=== PATIENT | male | born 1995 | race Two or more races ===

== ENCOUNTER 2021-01-07 06:50 | Emergency (ER) | payer MEDICAID ==
[~2021-01-07] VITALS: Ht 170.2 cm; Wt 88.5 kg
[2021-01-07 06:51] VITALS: BP 143/87
[2021-01-07] MEDS ORDERED: ALBUTEROL SULF 2.5 MG/0.5ML(0.5%) NEB SOLN NEB ONE (08:00)
[2021-01-07] MEDS ORDERED: IPRATROPIUM BROM 0.5 MG/2.5ML INH SOL NEB ONE (08:00)
== END 2021-01-07 08:46 | disposition home or self-care (01) ==
LOC: ER 06:50
DX: J45.901 Unspecified asthma with (acute) exacerbation (principal); Z76.0 Encounter for issue of repeat prescription
CPT/HCPCS: 94640; 99283; J7644

== ENCOUNTER 2021-01-13 11:52 | Emergency (ER) | payer MEDICAID ==
[~2021-01-13] VITALS: Ht 175.3 cm; Wt 88.5 kg
[2021-01-13 11:58] VITALS: BP 148/79
[2021-01-13] MEDS ORDERED: methylPREDNISolone SOD SUCC 125 MG/2 ML VL IM ONE (12:45)
[2021-01-13] MEDS ORDERED: IPRATROPIUM BROM 0.5 MG/2.5ML INH SOL NEB ONE (12:45)
[2021-01-13] MEDS ORDERED: ALBUTEROL SULF 2.5 MG/0.5ML(0.5%) NEB SOLN NEB ONE (12:45)
== END 2021-01-13 13:51 | disposition home or self-care (01) ==
LOC: ER 11:52
DX: J45.901 Unspecified asthma with (acute) exacerbation (principal)
CPT/HCPCS: 71046; 94640; 96372; 99283; J2930; J7644

== ENCOUNTER 2021-01-29 21:18 | Emergency (ER) | payer MEDICAID ==
[~2021-01-29] VITALS: Ht 172.7 cm; Wt 88.5 kg
[2021-01-30 01:29] VITALS: BP 137/74
[2021-01-30] MEDS ORDERED: KETOROLAC TROMETH 60MG/2ML VIAL IM ONE (03:15)
[2021-01-30] MEDS ORDERED: methylPREDNISolone SOD SUCC 125 MG/2 ML VL IM ONE (03:15)
== END 2021-01-30 04:28 | disposition home or self-care (01) ==
LOC: ER 21:18
DX: L25.0 Unspecified contact dermatitis due to cosmetics (principal); J45.909 Unspecified asthma, uncomplicated
CPT/HCPCS: 96372; 99284; J1885; J2930

== ENCOUNTER 2022-01-24 17:04 | Emergency (ER) | payer MEDICAID ==
[~2022-01-24] VITALS: Ht 175.3 cm; Wt 90.4 kg
[2022-01-24] MEDS: SODIUM CHLORIDE 0.9% 1,000 ML IVB ONE (17:45)
[2022-01-24] MEDS: ONDANSETRON HCL 4 MG/2 ML VIAL IV ONE (17:45)
[2022-01-24] MEDS: PANTOPRAZOLE 40 MG/10 ML VIAL INJ IV ONE (17:45)
[2022-01-24 18:05] LABS: Basophils # (auto) 0 10 ^3/uL (0-0.2); Basophils % (auto) 0.3 % (0.0-2.0); Eosinophils # (auto) 0 10 ^3/uL (0-0.8); Eosinophils % (auto) 0.3 % (0.0-7.0); Hematocrit 50.8 % (41.0-53.0); Hemoglobin 16.6 g/dL (13.5-17.5); Lymphocytes # (auto) 1.4 10 ^3/uL (0.4-5.4); Lymphocytes % (auto) 13.4 % (10.0-50.0); Mean Corpuscular Hgb Conc. 32.7 g/dL (32.0-36.0); Mean Corpuscular Volume 91.9 fL (80.0-100.0); Monocytes # (auto) 0.7 10 ^3/uL (0-1.3); Monocytes % (auto) 6.8 % (0.0-12.0); Neutrophils % (auto) 79.2 % (37.0-80.0); Nucleated Red Blood Cells % 0.2 %; Red Blood Cells 5.53 10^6/uL (4.5-5.90); Red Cell Distribution Width 12.7 % (11.8-14.3); White Blood Cell 10.1 10^3/uL (4.4-10.8)
[2022-01-24 18:16] LABS: Albumin 3.8 g/dL (3.4-5.0); Calcium 8.4 mg/dL (8.5-10.1); Potassium 3.9 mmol/L (3.5-5.1)
[2022-01-24 18:20] LABS: BUN/Creatinine Ratio 7.3; Bilirubin, Total 0.6 mg/dL (0.2-1.0); Total Protein 7.2 g/dL (6.4-8.2)
[2022-01-24 18:37] LABS: Urine Bacteria NONE SEEN /hpf (None Seen); Urine Blood Negative /uL (Negative); Urine Mucus FEW (None Seen); Urine Specific Gravity 1.029 (1.001-1.035); Urine WBC <1 /hpf (0 - 3)
[2022-01-24 21:05] VITALS: BP 102/86
== END 2022-01-24 21:10 | disposition home or self-care (01) ==
LOC: ER 17:04
DX: R10.13 Epigastric pain (principal); R11.2 Nausea with vomiting, unspecified; F12.10 Cannabis abuse, uncomplicated; J45.909 Unspecified asthma, uncomplicated
CPT/HCPCS: 36415; 73120; 74176; 80053; 81001; 82150; 83690; 85025; 96361; 96374; 96375; 99285; C9113; J2405; J7030

== ENCOUNTER 2022-04-03 15:32 | Emergency (ER) | payer MEDICAID ==
[~2022-04-03] VITALS: Ht 175.3 cm; Wt 95.0 kg
[2022-04-03] MEDS ORDERED: METOCLOPRAMIDE HCL 5MG/ml INJ 2ml VIAL IV ONE (16:15)
[2022-04-03] MEDS ORDERED: KETOROLAC TROMETH 30 MG/ML 1ML VIAL IV ONE (16:15)
[2022-04-03] MEDS ORDERED: SODIUM CHLORIDE 0.9% 1,000 ML IV ONE (16:15)
[2022-04-03 16:29] LABS: Basophils # (auto) 0.2 10 ^3/uL (0-0.2); Basophils % (auto) 1.2 % (0.0-2.0); Eosinophils # (auto) 0.1 10 ^3/uL (0-0.8); Eosinophils % (auto) 1.2 % (0.0-7.0); Hemoglobin 17.1 g/dL (13.5-17.5); Lymphocytes # (auto) 5.5 10 ^3/uL (0.4-5.4); Mean Corpuscular Hemoglobin 29.9 pg (28.0-32.0); Mean Corpuscular Hgb Conc. 32.3 g/dL (32.0-36.0); Mean Corpuscular Volume 92.6 fL (80.0-100.0); Monocytes # (auto) 0.9 10 ^3/uL (0-1.3); Monocytes % (auto) 7.1 % (0.0-12.0); Neutrophils # (auto) 5.8 10 ^3/uL (1.6-8.6); Neutrophils % (auto) 46.5 % (37.0-80.0); Nucleated Red Blood Cells % 0.2 %; Red Blood Cells 5.73 10^6/uL (4.5-5.90); Red Cell Distribution Width 13.2 % (11.8-14.3); White Blood Cell 12.5 10^3/uL (4.4-10.8)
[2022-04-03 16:58] VITALS: BP 139/82
[2022-04-03] MEDS ORDERED: TAMSULOSIN HYDROCHLORIDE 0.4 MG CAP PO ONE (17:45)
[2022-04-03 17:52] LABS: Calcium 8.7 mg/dL (8.5-10.1)
[2022-04-03 17:56] LABS: BUN/Creatinine Ratio 10.2; Bilirubin, Total 0.5 mg/dL (0.2-1.0); Total Protein 6.7 g/dL (6.4-8.2)
[2022-04-03] MEDS ORDERED: HYDR1TAB97 PO (18:25)
[2022-04-03] MEDS ORDERED: TAM04C PO (18:25)
[2022-04-03] MEDS ORDERED: NAP500T PO (18:25)
== END 2022-04-03 18:21 | disposition home or self-care (01) ==
LOC: ER 15:32
DX: K42.9 Umbilical hernia without obstruction or gangrene (principal); N13.30 Unspecified hydronephrosis; R16.2 Hepatomegaly with splenomegaly, not elsewhere classified; F12.10 Cannabis abuse, uncomplicated; J45.909 Unspecified asthma, uncomplicated; Z87.442 Personal history of urinary calculi
CPT/HCPCS: 36415; 74176; 80053; 85025; 96361; 96374; 96375; 99284; J1885; J2765; J7030

== ENCOUNTER 2024-04-15 11:47 | Emergency (ER) | payer MEDICAID ==
[~2024-04-15] VITALS: Ht 175.3 cm; Wt 95.4 kg
[~2024-04-15 11:47] MED LIST: HYDR1TAB97 PO; IBUP-1456 PO; NAP500T PO; TAMS-35 PO
[2024-04-15 13:12] LABS: Basophils # (auto) 0.1 10 ^3/uL (0-0.2); Basophils % (auto) 1.1 % (0.0-2.0); Eosinophils # (auto) 0.2 10 ^3/uL (0-0.8); Eosinophils % (auto) 2.8 % (0.0-7.0); Hematocrit 49.9 % (41.0-53.0); Hemoglobin 17.6 g/dL (13.5-17.5); Lymphocytes # (auto) 3.1 10 ^3/uL (0.4-5.4); Lymphocytes % (auto) 38.5 % (10.0-50.0); Mean Corpuscular Hemoglobin 32.8 pg (28.0-32.0); Mean Corpuscular Hgb Conc. 35.3 g/dL (32.0-36.0); Monocytes # (auto) 0.6 10 ^3/uL (0-1.3); Monocytes % (auto) 7.3 % (0.0-12.0); Neutrophils # (auto) 4.1 10 ^3/uL (1.6-8.6); Neutrophils % (auto) 50.3 % (37.0-80.0); Nucleated Red Blood Cells % 0.1 %; Platelet Count (auto) 225 10^3/uL (140-450); Red Blood Cells 5.36 10^6/uL (4.5-5.90); White Blood Cell 8.1 10^3/uL (4.4-10.8)
[2024-04-15 13:21] LABS: Chloride 107 mmol/L (98-107); Potassium 4.1 mmol/L (3.5-5.1); Sodium 139 mmol/L (136-145)
[2024-04-15 13:22] LABS: Anion Gap 4 (5-15); Calcium 9.4 mg/dL (8.7-10.4); Carbon Dioxide 28 mmol/L (20-30)
[2024-04-15 13:27] LABS: BUN/Creatinine Ratio 7.8 (10.0-20.0); Blood Urea Nitrogen 6 mg/dL (9-23); Glucose 90 mg/dL (74-106)
[2024-04-15 16:29] VITALS: BP 127/82; PULSE 79; RESP 16; TEMP 98.7; O2SAT 98
== END 2024-04-15 16:36 | disposition home or self-care (01) ==
LOC: ER 11:47
DX: R07.89 Other chest pain (principal); J45.909 Unspecified asthma, uncomplicated; F12.10 Cannabis abuse, uncomplicated; Z87.442 Personal history of urinary calculi
CPT/HCPCS: 36415; 71045; 80048; 84484; 85025

== ENCOUNTER 2024-05-05 23:41 | Emergency (ER) | payer MEDICAID ==
[~2024-05-05] VITALS: Ht 160 cm; Wt 94.4 kg
[2024-05-06] MEDS: FLUORESCEIN SOD OPTH TEST STRIP LEFTEYE ONE (01:18)
[2024-05-06] MEDS: TETRACAINE HCL 0.5% OPTH(EYE) SOLN 4ML LEFTEYE ONE (01:19)
[2024-05-06] MEDS: SODIUM CHLORIDE 0.9% 500 ML IV ONE (01:55)
[2024-05-06 02:12] VITALS: BP 129/85; PULSE 62; RESP 18; TEMP 97.9; O2SAT 97
[2024-05-06] MEDS ORDERED: MOXI0.5S3 OP (02:27)
== END 2024-05-06 02:36 | disposition home or self-care (01) ==
LOC: ER 23:41
DX: S05.02XA Injury of conjunctiva and corneal abrasion without foreign body, left eye, initial encounter (principal); J45.909 Unspecified asthma, uncomplicated; F12.10 Cannabis abuse, uncomplicated; Z87.442 Personal history of urinary calculi; Z79.899 Other long term (current) drug therapy; W22.8XXA Striking against or struck by other objects, initial encounter; Y93.89 Activity, other specified; Y92.89 Other specified places as the place of occurrence of the external cause; Y99.8 Other external cause status
CPT/HCPCS: 96360; 99284; J7040